=== PATIENT | male | born 1965 | race Caucasian/White ===

== ENCOUNTER 2022-06-07 14:00 | Emergency (ER) | payer SELFPAY ==
[2022-06-07] MEDS ORDERED: Acetaminophen/HYDROcodone 325-5 MG Tab PO ONE (14:25)
[2022-06-07] MEDS ORDERED: Ketorolac 60 MG/2 ML SDV IM ONE (14:25)
== END 2022-06-07 17:34 | disposition home or self-care (01) ==
LOC: MW.ED 14:00
DX: M25.512 Pain in left shoulder (principal); M54.2 Cervicalgia
CPT/HCPCS: 72040; 72072; 72125; 73030; 96372; 99284; A9270; J1885; 99283

== ENCOUNTER 2023-03-01 11:04 | Emergency (ER) | payer BC ==
[2023-03-01 14:13] LABS: BASOPHILS PERCENT AUTO 0.3 % (0.0-1.5); EOSINOPHILS ABSOLUTE AUTO 0.2 K/uL (0.0-0.7); EOSINOPHILS PERCENT AUTO 1.7 % (0.0-7.0); HEMATOCRIT 43.3 % (38.0-50.0); LYMPHOCYTES PERCENT AUTO 21.7 % (16.0-40.0); MEAN CORPUSCULAR HEMOGLOBIN 29.9 pg (27.0-32.0); MEAN CORPUSCULAR HGB CONC 34.6 g/dL (31.0-37.0); MEAN CORPUSCULAR VOLUME 86.3 fL (80.0-98.0); MONOCYTES ABSOLUTE AUTO 0.6 K/uL (0.0-0.8); MONOCYTES PERCENT AUTO 7.1 % (0.0-15.0); NEUTROPHILS ABSOLUTE AUTO 6.3 K/uL (1.4-5.7); NEUTROPHILS PERCENT AUTO 69.2 % (48.0-80.0); NRBC ABSOLUTE 0 K/uL; PLATELET COUNT,PLT 347 K/uL (150-400); RED BLOOD CELL COUNT 5.02 M/uL (4.50-5.90); WHITE BLOOD CELL COUNT,WBC 9.07 K/uL (4.0-11.0)
[2023-03-01 14:47] LABS: A/G RATIO 1.1 (0.9-1.6); ALBUMIN 4.4 g/dL (3.4-5.0); BILIRUBIN TOTAL 1.7 mg/dL (0.2-1.0); CALCIUM 9.4 mg/dL (8.5-10.1); CARBON DIOXIDE,CO2 26.1 mmol/L (21.0-32.0); CREATININE 1.2 mg/dL (0.8-1.3); EST CRCL DRUG DOSING (CG) 80.87 mL/min; MAGNESIUM 2.2 mg/dL (1.8-2.4); POTASSIUM,K 4.4 mmol/L (3.5-5.1); PROTEIN TOTAL,TP 8.5 g/dL (6.4-8.2)
[2023-03-01 14:51] LABS: APPEARANCE,URINE CLEAR; BILIRUBIN,URINE NEGATIVE (NEGATIVE); COLOR,URINE YELLOW; GLUCOSE,URINE NEGATIVE (NEGATIVE); KETONES,URINE NEGATIVE (NEGATIVE); LEUKOCYTE ESTERASE,URINE NEGATIVE (NEGATIVE); NITRITE,URINE NEGATIVE (NEGATIVE); OCCULT BLOOD,URINE TRACE-INTACT (NEGATIVE); PROTEIN,URINE NEGATIVE (NEGATIVE); UROBILINOGEN,URINE 0.2 EU/dL (<2.0)
[2023-03-01 15:04] LABS: EPITHELIAL CELLS,URINE N (NONE-FEW); RBC,URINE 0-5 (0-2/HPF); WBC,URINE NONE SEEN (0-5/HPF)
[2023-03-01 15:05] LABS: BACTERIA,URINE NOT SEEN (NEGATIVE)
[2023-03-01] MEDS ORDERED: Alum Hydro/Mag Hydro/Simeth XS 15 ML, Lidocaine 2% 5 ML PO ONE ×2 (15:43)
[2023-03-01] MEDS ORDERED: LORazepam 1 MG Tab PO ONE (16:05)
[2023-03-01] MEDS ORDERED: Lidocaine 4% 1 each Patch TOP SCH (16:15)
[2023-03-01] MEDS ORDERED: Iopamidol 755 MG/ML 500 ML Multipack Bottle IVPUSH ONE (16:27)
== END 2023-03-01 18:36 | disposition home or self-care (01) ==
LOC: MW.ED 11:04
DX: K26.9 Duodenal ulcer, unspecified as acute or chronic, without hemorrhage or perforation (principal)
CPT/HCPCS: 36415; 74177; 80053; 81001; 83690; 83735; 83880; 84484; 85025; 93005; 99284; A9270; Q9967